=== PATIENT | female | born 1960 | race Caucasian/White ===

== ENCOUNTER 2017-05-06 10:19 | Inpatient (IN) | payer MEDICAID ==
[2017-05-06 10:20] VITALS: BMI 35.5
--- NOTE | 2017-05-06 10:32 | C.PDOC ---
History Of Present Illness 57F c/o sore throat, fever, body aches since yesterday. she took ibuprofen last yesterday. pmh "pre-diabetic." Time Seen by Provider: 05/06/17 10:32 Chief Complaint (Nursing): Flu-like Symptoms Past Medical History Vital Signs: Last Vital Signs Temp 97.7 F 05/09/17 15:10 Pulse 70 05/09/17 15:10 Resp 20 05/09/17 15:10 BP 118/78 05/09/17 15:10 Pulse Ox 96 05/09/17 15:10 - Medical History PMH: Anxiety Surgical History: Cholecystectomy Family History: States: Other Other Family History: nc - Social History Hx Tobacco Use: No Hx Alcohol Use: No Hx Substance Use: No - Immunization History Hx Tetanus Toxoid Vaccination: Yes Hx Influenza Vaccination: No Hx Pneumococcal Vaccination: No Review Of Systems Constitutional: Positive for: Fever, Malaise ENT: Positive for: Throat Pain Cardiovascular: Negative for: Chest Pain Respiratory: Positive for: Cough ("little"). Negative for: Shortness of Breath Gastrointestinal: Negative for: Nausea, Vomiting Genitourinary: Negative for: Dysuria Physical Exam - Physical Exam Appears: Well, Non-toxic, No Acute Distress Skin: Warm, Dry Eye(s): bilateral: PERRL Nose: No Epistaxis Oral Mucosa: Moist Tongue: No Swelling, No Lesions Lips: No Swelling, No Lesions Throat: Erythema, Exudate, Other (tonsils swollen but symmetric, uvual midline, normal phonation, no trismus, handling secretions well) Neck: Normal ROM, Supple Cardiovascular: Rhythm Regular Respiratory: No Decreased Breath Sounds, No Accessory Muscle Use, No Rales, No Rhonchi, No Stridor, No Wheezing Gastrointestinal/Abdominal: Soft, No Tenderness, No Distention, No Guarding, No Rebound Neurological/Psych: Oriented x3, Other (no focal deficits) ED Course And Treatment - Laboratory Results Result Diagrams: 05/09/17 08:16 05/09/17 17:05 O2 Sat by Pulse Oximetry: 97 Medical Decision Making Medical Decision Making: PROCEDURE: CT NECK WITH CONTRAST HISTORY: eval for abscess COMPARISON: None TECHNIQUE: CT of the neck with intravenous contrast. Coronal and sagittal reformats generated. Intravenous contrast dose: 100 mL Visipaque 320 Radiation dose: DLP 550.47 mGy-cm This CT exam was performed using one or more of the following dose reduction techniques: Automated exposure control, adjustment of the mA and/or kV according to patient size, and/or use of iterative reconstruction technique. FINDINGS: NASOPHARYNX: Unremarkable. SUPRAHYOID NECK: Moderately enlarged palatine tonsils seen. There is 0.6 centimeter low- attenuation focus at the peripheral aspect of the right tonsil may represent phlegmon. The possibility of small abscess formation is not totally excluded. There is narrowing of the upper airway at the level of the tonsils. Otherwise an Oropharynx, oral cavity, parapharyngeal space and retropharyngeal space. INFRAHYOID NECK: Unremarkable larynx, hypopharynx, and supraglottic space. Vocal cords intact. MASS: None. GLANDS: Parotid and submandibular glands unremarkable. Normal size thyroid gland, without nodule. LYMPH NODES: Right upper neck lymph nodes. CERVICAL SPINE: No fracture or focal lesion. VASCULAR STRUCTURES: Unremarkable. OTHER FINDINGS: None. IMPRESSION: Findings suggestive of tonsillitis. 0.6 centimeter focal hypodensity at the peripheral right tonsil may represent phlegmon or an early abscess formation. Mildly enlarged upper neck lymph nodes. Disc w Dr Nielsen who will admit Consulted ENT Dr Dominguez Disposition - Disposition Disposition: HOSPITALIZED Disposition Time: 16:50 Condition: STABLE - Clinical Impression Clinical Impression: Tonsillitis
[2017-05-06 12:13] LABS: SQUAMOUS EPITHIAL 10 /hpf (0-5); URINE BACTERIA RARE (<OCC); URINE BILIRUBIN NEGATIVE (NEGATIVE); URINE BLOOD 3+ (NEGATIVE); URINE CLARITY Hazy (Clear); URINE COLOR Amber (YELLOW); URINE GLUCOSE (UA) NORMAL (Normal); URINE LEUKOCYTE ESTERASE TRACE Leu/uL (Negative); URINE NITRATE NEGATIVE (NEGATIVE); URINE PROTEIN 1+ mg/dL (NEGATIVE)
[2017-05-06] MEDS ORDERED: Sodium Chloride 0.9% 1,000 ML IV ONE ×2 (12:33→13:39)
[2017-05-06] MEDS ORDERED: Sodium Chloride 0.9% 1,000 ML ONE (12:46)
[2017-05-06 13:10] LABS: BASO % 0.4 % (0.0-2.0); LYMPH # 1.5 K/uL (1.0-4.3); LYMPH % 14.5 % (20.0-40.0); MEAN CORPUSCULAR HEMOGLOBIN 30.2 pg (27.0-31.0); MEAN CORPUSCULAR HGB CONC 35.1 g/dL (33.0-37.0); MEAN PLATELET VOLUME 9.3 fL (7.2-11.7); MONO # 0.7 K/uL (0.0-0.8); MONO % 6.6 % (0.0-10.0); NEUT # 8.4 K/uL (1.8-7.0); NEUT % 78.5 % (50.0-75.0); RBC 4.97 Mil/uL (3.80-5.20); RED CELL DISTRIBUTION WIDTH 13.3 % (11.5-14.5)
[2017-05-06 13:11] LABS: WHITE BLOOD COUNT 10.6 K/uL (4.8-10.8)
[2017-05-06 13:24] LABS: ALBUMIN 4.3 g/dL (3.5-5.0); ALT/SGPT 30 U/L (9-52); AST/SGOT 25 U/L (14-36); BLOOD UREA NITROGEN 16 mg/dL (7-17); CALCIUM 8.2 mg/dl (8.6-10.4); GFR AFRICAN-AMERICAN > 60; GFR NON-AFRICAN AMERICAN > 60
[2017-05-06] MEDS ORDERED: Iodixanol 320 MG/ML 100 ML BOTTLE IV ONE (15:02)
--- NOTE | 2017-05-06 16:07 | CT ---
PROCEDURE: CT NECK WITH CONTRAST HISTORY: eval for abscess COMPARISON: None TECHNIQUE: CT of the neck with intravenous contrast. Coronal and sagittal reformats generated. Intravenous contrast dose: 100 mL Visipaque 320 Radiation dose: DLP 550.47 mGy-cm This CT exam was performed using one or more of the following dose reduction techniques: Automated exposure control, adjustment of the mA and/or kV according to patient size, and/or use of iterative reconstruction technique. FINDINGS: NASOPHARYNX: Unremarkable. SUPRAHYOID NECK: Moderately enlarged palatine tonsils seen. There is 0.6 centimeter low-attenuation focus at the peripheral aspect of the right tonsil may represent phlegmon. The possibility of small abscess formation is not totally excluded. There is narrowing of the upper airway at the level of the tonsils. Otherwise an Oropharynx, oral cavity, parapharyngeal space and retropharyngeal space. INFRAHYOID NECK: Unremarkable larynx, hypopharynx, and supraglottic space. Vocal cords intact. MASS: None. GLANDS: Parotid and submandibular glands unremarkable. Normal size thyroid gland, without nodule. LYMPH NODES: Right upper neck lymph nodes. CERVICAL SPINE: No fracture or focal lesion. VASCULAR STRUCTURES: Unremarkable. OTHER FINDINGS: None. IMPRESSION: Findings suggestive of tonsillitis. 0.6 centimeter focal hypodensity at the peripheral right tonsil may represent phlegmon or an early abscess formation. Mildly enlarged upper neck lymph nodes.
[2017-05-06] MEDS ORDERED: CLINDAMYCIN IVPB STA (16:21)
[2017-05-06] MEDS ORDERED: WATER IVPB STA (16:21)
[2017-05-06] MEDS ORDERED: DEXTROSE 5% IVPB STA (16:21)
[2017-05-06] MEDS: Sodium Chloride 0.9% 1,000 ML IV SCH (19:05)
--- NOTE | 2017-05-06 19:28 | CP.PCM.HP ---
Past Patient History - Past Social History Smoking Status: Never Smoked - ENDOCRINE/METABOLIC Hx Diabetes Mellitus Type 2: Yes (pre Diabetes) - PSYCHIATRIC Hx Anxiety: Yes Hx Substance Use: No - SURGICAL HISTORY Hx Cholecystectomy: Yes - ANESTHESIA Hx Anesthesia: Yes Hx Anesthesia Reactions: No Hx Malignant Hyperthermia: No Meds Home Medications: Home Medication List Medication Instructions Recorded Confirmed Type Cephalexin [cephalexin] 500 mg PO BID #10 cap 05/06/17 Rx Allergies/Adverse Reactions: Allergies Allergy/AdvReac Type Severity Reaction Status Date / Time Penicillins Allergy ITCHING Verified 05/06/17 10:27 Results - Vital Signs Recent Vital Signs: Last Vital Signs Temp 97.5 F L 05/06/17 18:55 Pulse 65 05/06/17 18:55 Resp 20 05/06/17 18:55 BP 89/55 L 05/06/17 18:55 Pulse Ox 97 05/06/17 18:55 - Labs Result Diagrams: 05/06/17 13:07 05/06/17 13:07 Labs: Laboratory Results - last 24 hr 05/06/17 05/06/17 05/06/17 10:43 10:43 12:01 WBC RBC Hgb Hct MCV MCH MCHC RDW Plt Count MPV Neut % (Auto) Lymph % (Auto) [place] % (Auto) Eos % (Auto) Baso % (Auto) Neut # Lymph # [place] # Eos # Baso # Sodium Potassium Chloride Carbon Dioxide Anion Gap BUN Creatinine Est GFR ( Amer) Est GFR (Non-Af Amer) Random Glucose Calcium Total Bilirubin AST ALT Alkaline Phosphatase Total Protein Albumin Globulin Albumin/Globulin Ratio Urine Color [place] Urine Clarity Hazy Urine pH 6.0 Ur Specific [place] 1.023 Urine Protein 1+ H Urine Glucose (UA) Normal Urine Ketones Negative Urine Blood 3+ H Urine Nitrate Negative Urine Bilirubin Negative Urine Urobilinogen 2.0 H Ur Leukocyte Esterase Trace Urine WBC (Auto) 7 H Urine RBC (Auto) 22 H Ur Squamous Epith Cells 10 H Urine Bacteria Rare Influenza Typ A,B (EIA) Negative for flu a/b Grp A Beta Strep Ag Positive H 05/06/17 05/06/17 13:07 13:07 WBC 10.6 D RBC 4.97 Hgb 15.0 Hct 42.7 MCV 86.0 MCH 30.2 MCHC 35.1 RDW 13.3 Plt Count 181 MPV 9.3 Neut % (Auto) 78.5 H Lymph % (Auto) 14.5 L [place] % (Auto) 6.6 Eos % (Auto) 0.0 Baso % (Auto) 0.4 Neut # 8.4 H Lymph # 1.5 [place] # 0.7 Eos # 0.0 Baso # 0.0 Sodium 129 L Potassium 3.6 Chloride 96 L Carbon Dioxide 22 Anion Gap 15 BUN 16 Creatinine 0.7 Est GFR ( Amer) > 60 Est GFR (Non-Af Amer) > 60 Random Glucose 123 H Calcium 8.2 L Total Bilirubin 1.9 H AST 25 ALT 30 Alkaline Phosphatase 91 Total Protein 8.5 H Albumin 4.3 Globulin 4.3 H Albumin/Globulin Ratio 1.0 Urine Color Urine Clarity Urine pH Ur Specific [place] Urine Protein Urine Glucose (UA) Urine Ketones Urine Blood Urine Nitrate Urine Bilirubin Urine Urobilinogen Ur Leukocyte Esterase Urine WBC (Auto) Urine RBC (Auto) Ur Squamous Epith Cells Urine Bacteria Influenza Typ A,B (EIA) Grp A Beta Strep Ag
[2017-05-06] MEDS ORDERED: Clindamycin 300 MG in Sodium Chloride 0.9% 100 ML IVPB SCH (22:00)
[2017-05-07] MEDS: Clindamycin 300 MG in Sodium Chloride 0.9% 100 ML IVPB SCH ×4 (01:00→18:51)
[2017-05-07] MEDS: Sodium Chloride 0.9% 1,000 ML IV SCH ×2 (05:00→14:00)
[2017-05-07] MEDS: Enoxaparin 40 mg Syringe SC SCH (09:25)
[2017-05-07] MEDS: Pantoprazole 40 mg EC Tab PO SCH (09:28)
[2017-05-07] MEDS ORDERED: Enoxaparin 40 mg Syringe SC SCH (10:00)
[2017-05-07] MEDS ORDERED: Pantoprazole 40 mg EC Tab PO SCH (10:00)
[2017-05-07] MEDS ORDERED: Lidocaine 1%/Epinephrine 1:100000 30 ml vial IJ ONE (11:00)
[2017-05-07] MEDS: Acetaminophen 650mg/20.3ml solution UD PO PRN ×2 (13:59→20:06)
[2017-05-07] MEDS: Vancomycin 1 GM in Sodium Chloride 0.9% 200 ML IVPB SCH (16:51)
--- NOTE | 2017-05-07 20:27 | CP.PCM.PN ---
Subjective - Date & Time of Evaluation Date of Evaluation: 05/07/17 Time of Evaluation: 11:20 - Subjective Subjective: clinically same Objective - Vital Signs/Intake and Output Vital Signs (last 24 hours): Temp Pulse Resp BP Pulse Ox 97.3 F L 68 20 108/69 96 05/07/17 20:06 05/07/17 17:48 05/07/17 16:30 05/07/17 20:10 05/07/17 16:30 Intake and Output: 05/07/17 05/08/17 18:59 06:59 Intake Total 1100 Balance 1100 - Medications Medications: Current Medications Acetaminophen (Tylenol 650mg/20.3ml Solution Ud) 650 mg PO Q6 PRN PRN Reason: Pain, moderate (4-7) Last Admin: 05/07/17 20:06 Dose: 650 mg Enoxaparin Sodium (Lovenox) 40 mg SC DAILY [facility] Last Admin: 05/07/17 09:25 Dose: 40 mg Sodium Chloride (Sodium Chloride 0.9%) 1,000 mls @ 100 mls/hr IV .Q10H [facility] Last Admin: 05/07/17 14:00 Dose: 100 mls/hr Clindamycin Phosphate 300 mg/ (Sodium Chloride) 102 mls @ 102 mls/hr IVPB Q6H [facility] Last Admin: 05/07/17 18:51 Dose: 102 mls/hr Vancomycin HCl 1 gm/ Sodium (Chloride) 200 mls @ 133.333 mls/hr IVPB Q12H [facility] Last Admin: 05/07/17 16:51 Dose: 133.333 mls/hr Pantoprazole Sodium (Protonix Ec Tab) 40 mg PO DAILY [facility] Last Admin: 05/07/17 09:28 Dose: 40 mg Prednisone (Prednisone Tab) 20 mg PO DAILY [facility] Last Admin: 05/07/17 09:27 Dose: 20 mg - Labs Labs: 05/06/17 13:07 05/06/17 13:07
--- NOTE | 2017-05-07 20:44 | OP ---
PROCEDURE DATE: 05/07/2017 PREOPERATIVE DIAGNOSIS: Right peritonsillar abscess. POSTOPERATIVE DIAGNOSIS: Right peritonsillar abscess. PROCEDURE: Incision and drainage of right peritonsillar abscess. SIGNIFICANT FINDINGS: Right peritonsillar abscess. SURGEON: Tejas Dominguez M.D. DESCRIPTION OF PROCEDURE: The patient was placed in a seated position. The right peritonsillar area was injected with lidocaine with epinephrine. Incision was made in the right peritonsillar area using a blade. Dissections were done, pus was noted coming out. Loculations were broken using a clamp. Bleeding was controlled with time. The patient tolerated the procedure well. Tejas Dominguez MD
[2017-05-08] MEDS: Clindamycin 300 MG in Sodium Chloride 0.9% 100 ML IVPB SCH ×4 (00:13→18:23)
[2017-05-08] MEDS: Sodium Chloride 0.9% 1,000 ML IV SCH ×4 (01:00→18:22)
[2017-05-08] MEDS: Vancomycin 1 GM in Sodium Chloride 0.9% 200 ML IVPB SCH ×2 (06:11→16:39)
[2017-05-08 07:48] VITALS: RESP 20
[2017-05-08] MEDS: Acetaminophen 650mg/20.3ml solution UD PO PRN (09:57)
[2017-05-08] MEDS: Pantoprazole 40 mg EC Tab PO SCH (09:57)
--- NOTE | 2017-05-08 10:04 | CP.PCM.PN ---
Subjective - Date & Time of Evaluation Date of Evaluation: 05/08/17 Time of Evaluation: 10:00 - Subjective Subjective: Progress note for Dr. Nielsen's Service Pt seen and examined at bedside She continues to have throat pain. She also point externally to the neck on her right and states that it hurts there as well. She was afebrile overnight. No acute events overnight. She denies feeling short of breath or unable to inhale/exhale effectively. Objective - Vital Signs/Intake and Output Vital Signs (last 24 hours): Temp Pulse Resp BP Pulse Ox 98.0 F 95 H 20 111/69 95 05/08/17 07:47 05/08/17 07:47 05/08/17 07:47 05/08/17 07:47 05/08/17 07:47 Intake and Output: 05/08/17 05/08/17 06:59 18:59 Intake Total 1300 Balance 1300 - Medications Medications: Current Medications Acetaminophen (Tylenol 650mg/20.3ml Solution Ud) 650 mg PO Q6 PRN PRN Reason: Pain, moderate (4-7) Last Admin: 05/08/17 09:57 Dose: 650 mg Enoxaparin Sodium (Lovenox) 40 mg SC DAILY [facility] Last Admin: 05/07/17 09:25 Dose: 40 mg Sodium Chloride (Sodium Chloride 0.9%) 1,000 mls @ 100 mls/hr IV .Q10H [facility] Last Admin: 05/08/17 09:59 Dose: Not Given Clindamycin Phosphate 300 mg/ (Sodium Chloride) 102 mls @ 102 mls/hr IVPB Q6H [facility] Last Admin: 05/08/17 06:09 Dose: 102 mls/hr Vancomycin HCl 1 gm/ Sodium (Chloride) 200 mls @ 133.333 mls/hr IVPB Q12H [facility] Last Admin: 05/08/17 06:11 Dose: 133.333 mls/hr Pantoprazole Sodium (Protonix Ec Tab) 40 mg PO DAILY [facility] Last Admin: 05/08/17 09:57 Dose: 40 mg Prednisone (Prednisone Tab) 20 mg PO DAILY [facility] Last Admin: 05/08/17 09:57 Dose: 20 mg - Labs Labs: 05/06/17 13:07 05/06/17 13:07 - Constitutional Appears: No Acute Distress - Head Exam Head Exam: ATRAUMATIC, NORMOCEPHALIC - Eye Exam Eye Exam: EOMI, Normal appearance - ENT Exam ENT Exam: Mucous Membranes Moist Additional comments: bilateral tonsil enlargement +3 - Neck Exam Neck Exam: Lymphadenopathy - Respiratory Exam Respiratory Exam: Clear to Ausculation Bilateral, NORMAL BREATHING PATTERN - Cardiovascular Exam Cardiovascular Exam: REGULAR RHYTHM, +S1, +S2 - GI/Abdominal Exam GI & Abdominal Exam: Soft. absent: Tenderness - Neurological Exam Neurological Exam: Alert, Awake, Oriented x3 - Psychiatric Exam Psychiatric exam: Normal Affect, Normal Mood - Skin Skin Exam: Dry, Warm Assessment and Plan - Assessment and Plan (Free Text) Plan: Tonsillitis/R pertonsillar abscess ENT consult placed to Dr. Nathaniel morgan appreciated s/p I+D for R peritonsillar abscess 05/07 ID Consulted- Dr. Mathew morgan appreciated Isolation precautions ECHO to r/o valvular infiltration of group a strep continue current IV abx for one more day Clindamycin 300mg IV q6hrs Vancomycin 1g IV daily Prednisone 20mg PO daily Group A strep + Blood cx- NGTD WBC- normal Afebrile CT neck consistent with tonsillitis;R abscess Prophylaxis Protonix Lovenox This patient will remain for one more day with current treatments. She will be evaluated by Dr. Beckford prior to discharge. We will monitor for complications of GAS infection. This was discussed with Dr. Beckford. Case discussed with Dr. Nielsen All management as per Dr. Nielsen
[2017-05-08] MEDS: Enoxaparin 40 mg Syringe SC SCH (11:06)
--- NOTE | 2017-05-08 14:19 | CP.PCM.CON ---
History of Present Illness - History of Present Illness History of Present Illness: Infectious disease consult; Patient seen and chart reviewed. Case discussed with the resident and staff .Consult dictated; see order sheet. Dictation number; [id number]. RESPIRATORY AND CONTACT PRECAUTIONS PATIENT HAS GROUP A STREP.PHARYNGOTONSILLITIS S/P I & D RIGHT TONSILLAR ABSCESS 05/07/17 BY ENT. MONITOR CLOSELY FOR RESPIRATORY STATUS PATIENT TO BE OBSERVED IN-HOSPITAL FOR NOW. CONTINUE iv ANTIBIOTICS. ( patient allergic to penicillin ) Past Patient History - Past Medical History & Family History Past Medical History?: Yes - Past Social History Smoking Status: Never Smoked - ENDOCRINE/METABOLIC Hx Diabetes Mellitus Type 2: Yes (pre Diabetes) - MUSCULOSKELETAL/RHEUMATOLOGICAL Hx Falls: No - PSYCHIATRIC Hx Anxiety: Yes Hx Substance Use: No - SURGICAL HISTORY Hx Cholecystectomy: Yes - ANESTHESIA Hx Anesthesia: Yes Hx Anesthesia Reactions: No Hx Malignant Hyperthermia: No Meds Home Medications: Home Medication List Medication Instructions Recorded Confirmed Type Cephalexin [cephalexin] 500 mg PO BID #10 cap 05/06/17 Rx Allergies/Adverse Reactions: Allergies Allergy/AdvReac Type Severity Reaction Status Date / Time Penicillins Allergy ITCHING Verified 05/06/17 10:27 - Medications Medications: Current Medications Acetaminophen (Tylenol 650mg/20.3ml Solution Ud) 650 mg PO Q6 PRN PRN Reason: Pain, moderate (4-7) Last Admin: 05/08/17 09:57 Dose: 650 mg Enoxaparin Sodium (Lovenox) 40 mg SC DAILY [facility] Last Admin: 05/08/17 11:06 Dose: 40 mg Sodium Chloride (Sodium Chloride 0.9%) 1,000 mls @ 100 mls/hr IV .Q10H [facility] Last Admin: 05/08/17 09:59 Dose: Not Given Clindamycin Phosphate 300 mg/ (Sodium Chloride) 102 mls @ 102 mls/hr IVPB Q6H [facility] Last Admin: 05/08/17 12:14 Dose: 102 mls/hr Vancomycin HCl 1 gm/ Sodium (Chloride) 200 mls @ 133.333 mls/hr IVPB Q12H [facility] Last Admin: 05/08/17 06:11 Dose: 133.333 mls/hr Pantoprazole Sodium (Protonix Ec Tab) 40 mg PO DAILY [facility] Last Admin: 05/08/17 09:57 Dose: 40 mg Prednisone (Prednisone Tab) 20 mg PO DAILY [facility] Last Admin: 05/08/17 09:57 Dose: 20 mg Results - Vital Signs Recent Vital Signs: Last Vital Signs Temp 98.0 F 05/08/17 07:47 Pulse 95 H 05/08/17 07:47 Resp 20 05/08/17 07:47 BP 111/69 05/08/17 07:47 Pulse Ox 95 05/08/17 07:47 - Labs Result Diagrams: 05/06/17 13:07 05/06/17 13:07 Labs: Laboratory Results - last 24 hr 05/07/17 05/07/17 05/07/17 16:57 17:53 21:21 POC Glucose (mg/dL) 97 98 Hemoglobin A1c 5.9 05/08/17 05/08/17 06:15 11:00 POC Glucose (mg/dL) 82 96 Hemoglobin A1c
[2017-05-08 16:55] LABS: SQUAMOUS EPITHIAL 1 /hpf (0-5); URINE BACTERIA OCC (<OCC); URINE BILIRUBIN NEGATIVE (NEGATIVE); URINE BLOOD 1+ (NEGATIVE); URINE CLARITY Clear (Clear); URINE COLOR Straw (YELLOW); URINE GLUCOSE (UA) 2+ mg/dL (Normal); URINE LEUKOCYTE ESTERASE NEG Leu/uL (Negative); URINE NITRATE NEGATIVE (NEGATIVE); URINE PROTEIN NEGATIVE (NEGATIVE); URINE UROBILINOGEN NORMAL mg/dL (0.2-1.0)
--- NOTE | 2017-05-08 18:51 | CP.PCM.PN ---
Subjective - Date & Time of Evaluation Date of Evaluation: 05/08/17 Time of Evaluation: 10:40 - Subjective Subjective: clincally same Objective - Vital Signs/Intake and Output Vital Signs (last 24 hours): Temp Pulse Resp BP Pulse Ox 98.5 F 61 20 106/68 95 05/08/17 15:10 05/08/17 18:00 05/08/17 15:10 05/08/17 15:10 05/08/17 15:10 Intake and Output: 05/08/17 05/08/17 06:59 18:59 Intake Total 1300 1480 Balance 1300 1480 - Medications Medications: Current Medications Acetaminophen (Tylenol 650mg/20.3ml Solution Ud) 650 mg PO Q6 PRN PRN Reason: Pain, moderate (4-7) Last Admin: 05/08/17 09:57 Dose: 650 mg Enoxaparin Sodium (Lovenox) 40 mg SC DAILY [facility] Last Admin: 05/08/17 11:06 Dose: 40 mg Sodium Chloride (Sodium Chloride 0.9%) 1,000 mls @ 100 mls/hr IV .Q10H [facility] Last Admin: 05/08/17 18:22 Dose: Not Given Clindamycin Phosphate 300 mg/ (Sodium Chloride) 102 mls @ 102 mls/hr IVPB Q6H [facility] Last Admin: 05/08/17 18:23 Dose: 102 mls/hr Vancomycin HCl 1 gm/ Sodium (Chloride) 200 mls @ 133.333 mls/hr IVPB Q12H [facility] Last Admin: 05/08/17 16:39 Dose: 133.333 mls/hr Pantoprazole Sodium (Protonix Ec Tab) 40 mg PO DAILY [facility] Last Admin: 05/08/17 09:57 Dose: 40 mg Prednisone (Prednisone Tab) 20 mg PO DAILY [facility] Last Admin: 05/08/17 09:57 Dose: 20 mg - Labs Labs: 05/06/17 13:07 05/06/17 13:07
[2017-05-08] MEDS: Lactobacillus Acidophilus 500 MU Cap PO SCH (21:57)
[2017-05-09] MEDS: Clindamycin 300 MG in Sodium Chloride 0.9% 100 ML IVPB SCH ×3 (00:27→13:04)
[2017-05-09] MEDS: Sodium Chloride 0.9% 1,000 ML IV SCH ×2 (00:28→06:50)
[2017-05-09] MEDS: Vancomycin 1 GM in Sodium Chloride 0.9% 200 ML IVPB SCH ×2 (04:47→16:20)
--- NOTE | 2017-05-09 05:47 | CON ---
DATE: 05/08/2017 INFECTIOUS DISEASE CONSULTATION REQUESTING PHYSICIAN: Dr. Malgorzata Nielsen. REASON FOR CONSULTATION: Tonsillitis. HISTORY OF PRESENT ILLNESS: Patient is a 57-year-old female with no significant past medical history except for labelled as prediabetic and history of anxiety, was admitted on 05/06/2017 with complaints of sore throat, fever, and body aches for one day. Patient states she took ibuprofen, but it did not help. Patient was, therefore, admitted for further evaluation as she was found to have bad tonsillitis. CT of the neck and soft tissue of the neck was done, which was reported as right tonsillar phlegmon with early abscess formation. ENT consult was therefore obtained and the patient underwent I and D of the right peritonsillar abscess with drainage and pus coming out. Stool cultures came back positive for group A strep. PATIENT IS ALLERGIC TO PENICILLIN, was started on IV Cleocin 300 mg q.6 hourly to which I added vancomycin 1 g q. 12 hourly. Patient presently still continues to have pain in the right neck region and points with the finger at the tonsillar site with some lymphadenopathy also noted on the same side of the neck. Patient presently states she is feeling a little better than before she came in, but still continues to have pain on swallowing. Patient also has been started on steroids by ENT as noted. PAST MEDICAL HISTORY: Unremarkable except for anxiety and prediabetes. SURGICAL HISTORY: Consists of cholecystectomy. FAMILY HISTORY: Unknown. SOCIAL HISTORY: Patient denies smoking, drinking, or alcohol abuse. IMMUNIZATION HISTORY: Patient denies history of influenza vaccine or pneumococcal vaccine. She is up-to-date on tetanus toxoid vaccination as reported. REVIEW OF SYSTEMS: GENERAL: Presently does complain of some fever and throat pain and malaise. CARDIOVASCULAR: Denies any chest pain or shortness of breath. RESPIRATORY: Complains of cough, minimal, but no expectoration. Denies any shortness of breath. Presently does complain of blood-tinged expectorant secondary to the I and D. GASTROINTESTINAL: Unremarkable. No nausea, no vomiting, and no diarrhea. GENITOURINARY: Unremarkable. PHYSICAL EXAMINATION: GENERAL: Patient is awake, alert, presently in no acute distress. VITAL SIGNS: As noted. Patient, on admission, had a temperature of 102, presently afebrile. Blood pressure 100/63, respirations 20, pulse of 69, pulse ox is 97%. HEENT: Pupils equal, reactive to light and accommodation. There is erythema, exudation, and bruising of the right tonsil which is asymmetrically swollen. Uvula line is midline, but voice is hoarse. Patient is handling secretions well at present. NECK: Supple. Minimal lymphadenopathy noted on the right submandibular region and cervical region. CARDIOVASCULAR: S1, S2, regular. No murmur or gallop. ABDOMEN: Soft, nontender. No masses palpable. RESPIRATORY: A few rhonchi, but no rales or wheezing noted. CENTRAL NERVOUS SYSTEM: Awake, alert. Moves all extremities. LABORATORY DATA: Presently blood works only done on admission. WBC was 10.6, H and H of 15, platelets 181. Sodium 129, creatinine 0.7, BUN 16, random glucose at present was 110. Total bilirubin 1.9, AST 25, ALT 30, alkaline phosphatase is normal. Albumin is 4.3. Urinalysis on admission showed wbc's 7, rbc's 22. Repeat negative, 2+ glucose in the urine, otherwise wbc's 1, rbc's 1, occasional bacteria. Throat culture positive for group A strep. Blood culture is negative for 48 hours. Urine culture shows 10,000 to 50,000 multiple species, probably contaminant. IMPRESSION: 1. Right peritonsillar abscess, group A streptococcus, status post incision and drainage done by ENT on 05/07/2017. 2. Mild dysphagia, but tolerating liquids and soft diet. 3. Prediabetic. PLAN: Suggest we will continue to observe in hospital as unable to swallow pills. Continue IV vancomycin 1 g q. 12 hourly for now. Continue IV Cleocin 300 mg q. 6 hourly, p.o. prednisone 20 mg p.o. daily. Close observation for any respiratory distress. Case discussed with resident to order 2D echo to rule out any valvular abnormalities. Monitor renal functions closely. Vancomycin trough level prior to the fourth dose. We will follow along with you. Thank you very much for allowing me to participate in the care of your patient. Snehal Beckford MD
[2017-05-09] MEDS: Acetaminophen 650mg/20.3ml solution UD PO PRN (06:56)
[2017-05-09 08:22] LABS: HEMOGLOBIN 13.1 g/dL (11.0-16.0)
[2017-05-09 08:28] LABS: BASO % 0.4 % (0.0-2.0); EOS # 0.1 K/uL (0.0-0.7); EOS % 1.4 % (0.0-4.0); LYMPH # 3.6 K/uL (1.0-4.3); LYMPH % 40.1 % (20.0-40.0); MEAN CELL VOLUME 87.7 fL (81.0-99.0); MEAN CORPUSCULAR HEMOGLOBIN 29.6 pg (27.0-31.0); MEAN CORPUSCULAR HGB CONC 33.8 g/dL (33.0-37.0); MEAN PLATELET VOLUME 9.8 fL (7.2-11.7); MONO # 0.6 K/uL (0.0-0.8); MONO % 6.4 % (0.0-10.0); NEUT # 4.6 K/uL (1.8-7.0); NEUT % 51.7 % (50.0-75.0); NRBC % 0.1 % (0.0-2.0); RBC 4.44 Mil/uL (3.80-5.20); RED CELL DISTRIBUTION WIDTH 13.9 % (11.5-14.5)
--- NOTE | 2017-05-09 08:35 | CP.PCM.PN ---
Subjective - Date & Time of Evaluation Date of Evaluation: 05/09/17 Objective - Vital Signs/Intake and Output Vital Signs (last 24 hours): Temp Pulse Resp BP Pulse Ox 97.5 F L 64 20 125/78 96 05/09/17 08:27 05/09/17 08:27 05/09/17 08:27 05/09/17 08:27 05/09/17 08:27 - Medications Medications: Current Medications Acetaminophen (Tylenol 650mg/20.3ml Solution Ud) 650 mg PO Q6 PRN PRN Reason: Pain, moderate (4-7) Last Admin: 05/09/17 06:56 Dose: 650 mg Enoxaparin Sodium (Lovenox) 40 mg SC DAILY [facility] Last Admin: 05/08/17 11:06 Dose: 40 mg Sodium Chloride (Sodium Chloride 0.9%) 1,000 mls @ 100 mls/hr IV .Q10H [facility] Last Admin: 05/09/17 06:50 Dose: Not Given Clindamycin Phosphate 300 mg/ (Sodium Chloride) 102 mls @ 102 mls/hr IVPB Q6H [facility] Last Admin: 05/09/17 06:49 Dose: 102 mls/hr Vancomycin HCl 1 gm/ Sodium (Chloride) 200 mls @ 133.333 mls/hr IVPB Q12H [facility] Last Admin: 05/09/17 04:47 Dose: 133.333 mls/hr Lactobacillus Acidophilus (Bacid Acidophilus) 1 cap PO BID [facility] Last Admin: 05/08/17 21:57 Dose: 1 cap Pantoprazole Sodium (Protonix Ec Tab) 40 mg PO DAILY [facility] Last Admin: 05/08/17 09:57 Dose: 40 mg Prednisone (Prednisone Tab) 20 mg PO DAILY [facility] Last Admin: 05/08/17 09:57 Dose: 20 mg - Labs Labs: 05/09/17 08:16 05/06/17 13:07
[2017-05-09 09:28] LABS: BLOOD UREA NITROGEN 8 mg/dL (7-17); GFR AFRICAN-AMERICAN > 60; GFR NON-AFRICAN AMERICAN > 60
[2017-05-09 09:29] LABS: ALBUMIN 3.6 g/dL (3.5-5.0); ALT/SGPT 26 U/L (9-52); AST/SGOT 22 U/L (14-36); BILIRUBIN,DIRECT 0.2 mg/dL (0.0-0.4); CALCIUM 7.7 mg/dl (8.6-10.4)
[2017-05-09] MEDS: Pantoprazole 40 mg EC Tab PO SCH (09:44)
[2017-05-09] MEDS: Enoxaparin 40 mg Syringe SC SCH (09:44)
[2017-05-09] MEDS: Lactobacillus Acidophilus 500 MU Cap PO SCH (10:00)
--- NOTE | 2017-05-09 11:21 | CP.PCM.PN ---
Subjective - Date & Time of Evaluation Date of Evaluation: 05/09/17 Time of Evaluation: 11:19 - Subjective Subjective: Progress note for Dr. Nielsen's Service Pt seen and examined at bedside She continues to have throat pain. She also point externally to the neck on her right and states that it hurts there as well. She was afebrile overnight. No acute events overnight. She will be having her Echo today with preparation to discharge home on abx. Objective - Vital Signs/Intake and Output Vital Signs (last 24 hours): Temp Pulse Resp BP Pulse Ox 97.5 F L 64 20 125/78 96 05/09/17 08:27 05/09/17 08:27 05/09/17 08:27 05/09/17 08:27 05/09/17 08:27 - Medications Medications: Current Medications Acetaminophen (Tylenol 650mg/20.3ml Solution Ud) 650 mg PO Q6 PRN PRN Reason: Pain, moderate (4-7) Last Admin: 05/09/17 06:56 Dose: 650 mg Enoxaparin Sodium (Lovenox) 40 mg SC DAILY [facility] Last Admin: 05/09/17 09:44 Dose: 40 mg Sodium Chloride (Sodium Chloride 0.9%) 1,000 mls @ 100 mls/hr IV .Q10H [facility] Last Admin: 05/09/17 06:50 Dose: Not Given Clindamycin Phosphate 300 mg/ (Sodium Chloride) 102 mls @ 102 mls/hr IVPB Q6H [facility] Last Admin: 05/09/17 06:49 Dose: 102 mls/hr Vancomycin HCl 1 gm/ Sodium (Chloride) 200 mls @ 133.333 mls/hr IVPB Q12H [facility] Last Admin: 05/09/17 04:47 Dose: 133.333 mls/hr Lactobacillus Acidophilus (Bacid Acidophilus) 1 cap PO BID [facility] Last Admin: 05/09/17 10:00 Dose: 1 cap Pantoprazole Sodium (Protonix Ec Tab) 40 mg PO DAILY [facility] Last Admin: 05/09/17 09:44 Dose: 40 mg Prednisone (Prednisone Tab) 20 mg PO DAILY [facility] Last Admin: 05/09/17 09:44 Dose: 20 mg - Labs Labs: 05/09/17 08:16 05/09/17 08:16 - Head Exam Head Exam: ATRAUMATIC, NORMOCEPHALIC - Eye Exam Eye Exam: EOMI - ENT Exam ENT Exam: Mucous Membranes Moist Additional comments: +tonsils with R abscess - Respiratory Exam Respiratory Exam: Clear to Ausculation Bilateral, NORMAL BREATHING PATTERN. absent: Rhonchi, Wheezes - Cardiovascular Exam Cardiovascular Exam: REGULAR RHYTHM, +S1, +S2 - GI/Abdominal Exam GI & Abdominal Exam: Soft. absent: Tenderness - Neurological Exam Neurological Exam: Alert, Awake, Oriented x3 - Psychiatric Exam Psychiatric exam: Normal Affect, Normal Mood - Skin Skin Exam: Dry, Warm Assessment and Plan - Assessment and Plan (Free Text) Plan: Tonsillitis/R pertonsillar abscess ENT consult placed to Dr. Nathaniel morgan appreciated s/p I+D for R peritonsillar abscess 05/07 ID Consulted- Dr. Mathew morgan appreciated Isolation precautions ECHO to r/o valvular infiltration of group a strep continue current IV abx Clindamycin 300mg IV q6hrs Vancomycin 1g IV daily Prednisone 20mg PO daily Group A strep + Follow up ECHO Blood cx- NGTD WBC- normal Afebrile CT neck consistent with tonsillitis;R abscess Prophylaxis Protonix Lovenox This patient will remained inpatient for one more day yesterday to be evaluated by Dr. Beckford prior to discharge. We are planning to discharge her following her echo today with oral clindamycin. She will need outpatient follow up with her PMD. Case discussed with Dr. Nielsen All management as per Dr. Nielsen
[2017-05-09 12:29] LABS: ANTI SREPTOLYSIN O POSITIVE (NEGATIVE)
[2017-05-09 12:30] LABS: ASO TITER =>400 IU/ML (NEGATIVE)
--- NOTE | 2017-05-09 12:46 | CARD ---
APPROVED REPORT EXAM: Two-dimensional and M-mode echocardiogram with Doppler and color Doppler. Other Information Quality : GoodRhythm : INDICATION Infection:Rule out subacute bacterial endocarditis fever RISK FACTORS Diabetes 2D DIMENSIONS IVSd0.9 (0.7-1.1cm)LVDd5.0 (3.9-5.9cm) PWd1.0 (0.7-1.1cm)LVDs3.6 (2.5-4.0cm) FS (%) 26.7 %LVEF (%)52.1 (>50%) M-Mode DIMENSIONS Left Atrium (MM)3.75 (2.5-4.0cm)Aortic Root2.51 (2.2-3.7cm) Aortic Cusp Exc.1.57 (1.5-2.0cm) Mitral Valve MV E Gzgalmaz40.3cm/sMV A Pmqkjscj63.6cm/sE/A ratio1.3 TDI E/Lateral E'0.0E/Medial E'0.0 Tricuspid Valve TR Peak [id number]/sTR Peak Gr.[id number] LEFT VENTRICLE The left ventricle is normal size. There is normal left ventricular wall thickness. Left ventricle systolic function is normal. The Ejection Fraction is 50-55%. There is normal LV segmental wall motion. The left ventricular diastolic function is normal. RIGHT VENTRICLE The right ventricle is normal size. There is normal right ventricular wall thickness. The right ventricular systolic function is normal. ATRIA The left atrium size is normal. The right atrium size is normal. The interatrial septum is intact with no evidence for an atrial septal defect. AORTIC VALVE The aortic valve is normal in structure. No aortic regurgitation is present. There is no aortic valvular stenosis. There is no aortic valvular vegetation. MITRAL VALVE The mitral valve is normal in structure. There is no evidence of mitral valve prolapse. There is no mitral valve stenosis. Mitral regurgitation is mild. TRICUSPID VALVE The tricuspid valve is normal in structure. There is mild tricuspid regurgitation. Right ventricular systolic pressure is estimated at 30-40 mmHg. There is mild pulmonary hypertension. PULMONIC VALVE The pulmonic valve is not well visualized. There is no pulmonic valvular regurgitation. GREAT VESSELS The aortic root is normal in size. PERICARDIAL EFFUSION There is no significant pericardial effusion. <Conclusion> Left ventricle systolic function is normal. The Ejection Fraction is 50-55%. No aortic regurgitation is present. Mitral regurgitation is mild. There is mild tricuspid regurgitation. There is mild pulmonary hypertension. There is no pulmonic valvular regurgitation.
--- NOTE | 2017-05-09 13:23 | CP.PCM.PN ---
Subjective - Date & Time of Evaluation Date of Evaluation: 05/09/17 Time of Evaluation: 13:23 - Subjective Subjective: PATIENT WAS ADMITTED FOR TONSILLITIS SEEN BY FORTUNATO POST I&D CLEAR THE PATIENT FOR DC POTASSIUM WAS LOW REPLACE BEFORE DC LATEST IS 3.8 Objective - Vital Signs/Intake and Output Vital Signs (last 24 hours): Temp Pulse Resp BP Pulse Ox 97.5 F L 64 20 125/78 96 05/09/17 08:27 05/09/17 08:27 05/09/17 08:27 05/09/17 08:27 05/09/17 08:27 - Medications Medications: Current Medications Acetaminophen (Tylenol 650mg/20.3ml Solution Ud) 650 mg PO Q6 PRN PRN Reason: Pain, moderate (4-7) Last Admin: 05/09/17 06:56 Dose: 650 mg Enoxaparin Sodium (Lovenox) 40 mg SC DAILY [facility] Last Admin: 05/09/17 09:44 Dose: 40 mg Sodium Chloride (Sodium Chloride 0.9%) 1,000 mls @ 100 mls/hr IV .Q10H [facility] Last Admin: 05/09/17 06:50 Dose: Not Given Clindamycin Phosphate 300 mg/ (Sodium Chloride) 102 mls @ 102 mls/hr IVPB Q6H [facility] Last Admin: 05/09/17 13:04 Dose: 102 mls/hr Vancomycin HCl 1 gm/ Sodium (Chloride) 200 mls @ 133.333 mls/hr IVPB Q12H [facility] Last Admin: 05/09/17 04:47 Dose: 133.333 mls/hr Lactobacillus Acidophilus (Bacid Acidophilus) 1 cap PO BID [facility] Last Admin: 05/09/17 10:00 Dose: 1 cap Pantoprazole Sodium (Protonix Ec Tab) 40 mg PO DAILY [facility] Last Admin: 05/09/17 09:44 Dose: 40 mg Prednisone (Prednisone Tab) 20 mg PO DAILY [facility] Last Admin: 05/09/17 09:44 Dose: 20 mg - Labs Labs: 05/09/17 08:16 05/09/17 08:16 Assessment and Plan - Assessment and Plan (Free Text) Assessment: PATIENT IS SEEN AND EXAMINED AT THE BEDSIDE STILL COMPLAINING OF SORENESS IN THE THROAT ABLE TO SWALLOW REGULAR FOOD WITH NO DIFFICULTY LUNG SOUND CLEAR BILATERAL AND ECHO WAS DONE AND NORMAL DISCUSS WITH DR MOCK AND PMD WHO AGREE AND CLEAR THE PATIENT FOR DC FOLLOW UP WITH DR Garrett BONILLA IN 1-2 WEEK AT HIS OFFICE ---CALL HIS OFFICE FOR APPOINTMENT FOLLOW UP WITH THE [facility] IN [facility] FOLLOW UP WITH DR BUCIO IN A WEEK ---CALL HIS OFFICE FOR APPOINTMENT CONTINUE YOUR HOME MEDICATION DIRECTED IN THE MEDICATION REC Take your antibiotics as directed. ( AZITHROMYCIN 500 MG BY MOUTH DAILY FOR 7 DAYS) Strep throat can spread to others until 24 hours after you begin taking antibiotics. ... Drink plenty of fluids. Fluids may help soothe an irritated throat. Hot fluids, such as tea or soup, may help your throat feel better. CHANGE YOUR TOOTH BRUSH ONCE HOME TO AVOID REINFECTION Please follow up with your doctor. Return to the ER for any worsening symptoms or if you are not feeling better in 48 hours. DISCUSS WITH PATIENT WHO AGREE AND VERBALIZED UNDERSTANDING
--- NOTE | 2017-05-09 13:44 | CP.PCM.PN ---
Subjective - Date & Time of Evaluation Date of Evaluation: 05/09/17 Time of Evaluation: 13:44 - Subjective Subjective: afebrile, feeling better able to swallow pills no respiratory distress labs reviewed 2D ECHO REPORT NOTED . NO VALVULAR ABNORMALITIES. CASE DISCUSSED W DR ORTIZ/COURT ADVOCATE,MR KENAN Morales PLAN DC IV ABX. PO ZITHROMAX 500MG PO OD X 7DAYS. F/U WITH PMD. Objective - Vital Signs/Intake and Output Vital Signs (last 24 hours): Temp Pulse Resp BP Pulse Ox 97.5 F L 64 20 125/78 96 05/09/17 08:27 05/09/17 08:27 05/09/17 08:27 05/09/17 08:27 05/09/17 08:27 - Medications Medications: Current Medications Acetaminophen (Tylenol 650mg/20.3ml Solution Ud) 650 mg PO Q6 PRN PRN Reason: Pain, moderate (4-7) Last Admin: 05/09/17 06:56 Dose: 650 mg Enoxaparin Sodium (Lovenox) 40 mg SC DAILY [facility] Last Admin: 05/09/17 09:44 Dose: 40 mg Sodium Chloride (Sodium Chloride 0.9%) 1,000 mls @ 100 mls/hr IV .Q10H [facility] Last Admin: 05/09/17 06:50 Dose: Not Given Clindamycin Phosphate 300 mg/ (Sodium Chloride) 102 mls @ 102 mls/hr IVPB Q6H [facility] Last Admin: 05/09/17 13:04 Dose: 102 mls/hr Vancomycin HCl 1 gm/ Sodium (Chloride) 200 mls @ 133.333 mls/hr IVPB Q12H [facility] Last Admin: 05/09/17 04:47 Dose: 133.333 mls/hr Lactobacillus Acidophilus (Bacid Acidophilus) 1 cap PO BID [facility] Last Admin: 05/09/17 10:00 Dose: 1 cap Pantoprazole Sodium (Protonix Ec Tab) 40 mg PO DAILY [facility] Last Admin: 05/09/17 09:44 Dose: 40 mg Prednisone (Prednisone Tab) 20 mg PO DAILY [facility] Last Admin: 05/09/17 09:44 Dose: 20 mg - Labs Labs: 05/09/17 08:16 05/09/17 08:16 - Constitutional Appears: No Acute Distress - Head Exam Head Exam: NORMAL INSPECTION - Eye Exam Eye Exam: EOMI, PERRL - ENT Exam ENT Exam: Mucous Membranes Moist (RT TONSIL CONGESTED AND ENLARGED.) - Neck Exam Neck Exam: Lymphadenopathy (RT SUBMANDIBULAR/CERVICAL ), Tenderness - Cardiovascular Exam Cardiovascular Exam: REGULAR RHYTHM, +S1, +S2 - GI/Abdominal Exam GI & Abdominal Exam: Soft, Normal Bowel Sounds - Extremities Exam Extremities Exam: absent: Calf Tenderness, Pedal Edema - Neurological Exam Neurological Exam: Alert, Awake, CN II-XII Intact, Normal Gait, Oriented x3 - Skin Skin Exam: Normal Color, Warm Assessment and Plan (1) Strep tonsillitis Assessment & Plan: S/P I& D 05/07/17 DC IV ABX PO RX ABOVE. CASE DISCUSSED W THE STAFF Status: Acute
[2017-05-09] MEDS ORDERED: Potassium Chloride 20 mEq ER Tab PO ONE (14:00)
[2017-05-09 15:43] VITALS: BP 118/78; PULSE 70; TEMP 97.7
[2017-05-09 17:40] LABS: ALT/SGPT 30 U/L (9-52); AST/SGOT 30 U/L (14-36); BLOOD UREA NITROGEN 10 mg/dL (7-17); CALCIUM 7.9 mg/dl (8.6-10.4); GFR AFRICAN-AMERICAN > 60; GFR NON-AFRICAN AMERICAN > 60
[2017-05-09 18:37] VITALS: O2SAT 97
--- NOTE | 2017-05-09 19:34 | CP.PCM.PN ---
Subjective - Date & Time of Evaluation Date of Evaluation: 05/09/17 Time of Evaluation: 09:40 - Subjective Subjective: clinically same Objective - Vital Signs/Intake and Output Vital Signs (last 24 hours): Temp Pulse Resp BP Pulse Ox 97.7 F 70 20 118/78 97 05/09/17 15:10 05/09/17 15:10 05/09/17 15:10 05/09/17 15:10 05/09/17 18:37 Intake and Output: 05/09/17 05/10/17 18:59 06:59 Intake Total 480 Balance 480 - Medications Medications: Current Medications Acetaminophen (Tylenol 650mg/20.3ml Solution Ud) 650 mg PO Q6 PRN PRN Reason: Pain, moderate (4-7) Last Admin: 05/09/17 06:56 Dose: 650 mg Enoxaparin Sodium (Lovenox) 40 mg SC DAILY [facility] Last Admin: 05/09/17 09:44 Dose: 40 mg Clindamycin Phosphate 300 mg/ (Sodium Chloride) 102 mls @ 102 mls/hr IVPB Q6H [facility] Last Admin: 05/09/17 13:04 Dose: 102 mls/hr Vancomycin HCl 1 gm/ Sodium (Chloride) 200 mls @ 133.333 mls/hr IVPB Q12H [facility] Last Admin: 05/09/17 16:20 Dose: 133.333 mls/hr Lactobacillus Acidophilus (Bacid Acidophilus) 1 cap PO BID [facility] Last Admin: 05/09/17 10:00 Dose: 1 cap Pantoprazole Sodium (Protonix Ec Tab) 40 mg PO DAILY [facility] Last Admin: 05/09/17 09:44 Dose: 40 mg Prednisone (Prednisone Tab) 20 mg PO DAILY [facility] Last Admin: 05/09/17 09:44 Dose: 20 mg - Labs Labs: 05/09/17 08:16 05/09/17 17:05
== END 2017-05-09 19:50 | disposition home or self-care (01) | DRG 57 ==
LOC: C.ER 10:19 → C.9E 16:47 → C.5S 21:54
PROVIDERS: ADMIT Internal Medicine Nephrology; ATTEND Internal Medicine Nephrology
PROC: 0C9P0ZZ Drainage of Tonsils, Open Approach (ICD-10-PCS; principal; 2017-05-07)
DX: J36 Peritonsillar abscess (principal); B95.0 Streptococcus, group A, as the cause of diseases classified elsewhere; F41.9 Anxiety disorder, unspecified; R73.03 Prediabetes; Z90.49 Acquired absence of other specified parts of digestive tract; Z88.0 Allergy status to penicillin